=== PATIENT | male | born 1940 | race Caucasian/White ===

== ENCOUNTER 2017-02-24 10:56 | Emergency (ER) | payer MEDICARE, MEDICAID ==
[2016-02-16 10:44] VITALS: BMI 38.8
[~2017-02-24 10:56] MED LIST: ALDACTONE25 MG PO; ASPIRIN325 MG PO; ASPIRIN81 MG PO; BAYER CHEWABLE81 MG PO; COLACE100 MG PO; COREG6.25 MG PO; FOSINOPRIL SODI40 MG PO; GLUCOPHAGE500 MG PO; ISOSORBIDE MONO30 M1 PO; LANTUS INSULIN10 ML SC; MONOPRIL10 MG PO; NITRO-DUR0.2 MG TRANSDERM; PLAVIX75 MG PO; PROTONIX40 MG PO; ZOCOR40 MG PO
[2017-02-24 11:53] LABS: BASOPHILS 0.7 % (0-2); EOSINOPHILS 11.2 % (0-7); HEMATOCRIT 32.1 % (42.0-54.0); HEMOGLOBIN 10.8 g/dL (13.5-17.5); IMMATURE GRANULOCYTES 0.3 % (0-5); LYMPHOCYTES 29.8 % (15-50); MCH 27.9 pg (26.0-34.0); MCHC 33.6 g/dL (31.0-37.0); MCV 82.9 fL (80.0-100.0); MONOCYTES 13.8 % (2-11); NEUTROPHILS 44.2 % (40-80); PLATELET COUNT 186 10x3/uL (130-400); RBC 3.87 10x6/uL (4.20-6.10); RDW 15.3 % (11.5-14.5); WBC 7.1 10x3/uL (4.8-10.8)
[2017-02-24 12:07] LABS: ALBUMIN 3.1 g/dL (3.4-5.0); ALKALINE PHOSPHATASE 55 U/L (46-116); ALT (SGPT) 16 U/L (10-68); BILIRUBIN - TOTAL 0.29 mg/dL (0.2-1.3); CALC OSMOLALITY 260 mosm/kg (275-300); CALCIUM 8.5 mg/dL (8.5-10.1); CARBON DIOXIDE 32.8 mmol/L (21.0-32.0); CHLORIDE - SERUM 94 mmol/L (98-107); CREATININE - SERUM 1.2 mg/dL (0.6-1.3); GLUCOSE 173 mg/dL (74-106); POTASSIUM - SERUM 4.3 mmol/L (3.5-5.1); PROTEIN - SERUM 6.7 g/dL (6.4-8.2); SODIUM 127 mmol/L (136-145); UREA NITROGEN 17 mg/dL (7-18); eGFR NON AFRICAN AMERICAN 63 mL/min (90-120)
[2017-02-24 12:19] LABS: CHOL - HDL RATIO 2.6 ratio (2.3-4.9); CHOLESTEROL, TOTAL 182 mg/dL (0-200); CREATINE KINASE 76 UL (21-232); HDL CHOLESTEROL 69 mg/dL (32-96); LDL CHOLESTEROL 98 mg/dL (0-100); LDL-HDL RATIO 1.4 ratio (1.5-3.5); PRO BNP 427 pg/mL (0-450); TRIGLYCERIDE 76 mg/dL (30-200)
[2017-02-24 12:27] LABS: TROPONIN-I < 0.017 ng/mL (0.000-0.060)
== END 2017-02-24 15:39 | disposition home or self-care (01) ==
LOC: D.ER 10:56
PROVIDERS: Emergency Medicine
DX: R07.9 Chest pain, unspecified (principal); R00.1 Bradycardia, unspecified

== ENCOUNTER 2017-03-04 20:43 | Emergency (ER) | payer MEDICARE, MEDICAID ==
[2016-02-16 10:44] VITALS: BMI 38.8
[2017-03-04 21:37] LABS: BASOPHILS 0.6 % (0-2); HEMATOCRIT 33.4 % (42.0-54.0); HEMOGLOBIN 11.2 g/dL (13.5-17.5); IMMATURE GRANULOCYTES 0.5 % (0-5); LYMPHOCYTES 25.4 % (15-50); MCH 27.9 pg (26.0-34.0); MCHC 33.5 g/dL (31.0-37.0); MCV 83.3 fL (80.0-100.0); MONOCYTES 12.4 % (2-11); NEUTROPHILS 47.1 % (40-80); PLATELET COUNT 172 10x3/uL (130-400); RBC 4.01 10x6/uL (4.20-6.10); RDW 15.3 % (11.5-14.5); WBC 6.3 10x3/uL (4.8-10.8)
[2017-03-04 21:51] LABS: ALBUMIN 3.3 g/dL (3.4-5.0); ALKALINE PHOSPHATASE 62 U/L (46-116); ALT (SGPT) 17 U/L (10-68); CALC OSMOLALITY 262 mosm/kg (275-300); CALCIUM 8.6 mg/dL (8.5-10.1); CARBON DIOXIDE 29.7 mmol/L (21.0-32.0); CHLORIDE - SERUM 95 mmol/L (98-107); CREATININE - SERUM 1.2 mg/dL (0.6-1.3); GLUCOSE 145 mg/dL (74-106); POTASSIUM - SERUM 4.2 mmol/L (3.5-5.1); PROTEIN - SERUM 7.1 g/dL (6.4-8.2); SODIUM 129 mmol/L (136-145); UREA NITROGEN 16 mg/dL (7-18); eGFR NON AFRICAN AMERICAN 63 mL/min (90-120)
[2017-03-04 22:02] LABS: CHOL - HDL RATIO 2.2 ratio (2.3-4.9); CHOLESTEROL, TOTAL 190 mg/dL (0-200); CKMB 1.4 U/L (0.0-3.6); CREATINE KINASE 76 UL (21-232); HDL CHOLESTEROL 86 mg/dL (32-96); LDL CHOLESTEROL 98 mg/dL (0-100); LDL-HDL RATIO 1.1 ratio (1.5-3.5); TRIGLYCERIDE 33 mg/dL (30-200); TROPONIN-I < 0.017 ng/mL (0.000-0.060)
== END 2017-03-04 23:15 | disposition home or self-care (01) ==
LOC: D.ER 20:43
PROVIDERS: Emergency Medicine
DX: R07.9 Chest pain, unspecified (principal); Z86.79 Personal history of other diseases of the circulatory system; E11.9 Type 2 diabetes mellitus without complications; Z79.4 Long term (current) use of insulin; I10 Essential (primary) hypertension; E87.1 Hypo-osmolality and hyponatremia; R06.00 Dyspnea, unspecified; F17.200 Nicotine dependence, unspecified, uncomplicated; R00.1 Bradycardia, unspecified

== ENCOUNTER 2018-04-10 11:41 | Outpatient (CLI) | payer MEDICARE, MEDICAID ==
[~2018-04-10] VITALS: Ht 182.9 cm; Wt 116.2 kg
--- NOTE | ~2018-04-10 | HP ---
PATIENT: RIGOBERTO ROSARIO MEDICAL RECORD: [id number] ACCOUNT: [id number] LOCATION:[facility] : 40 ADMISSION DATE: 04/10/18 PCP: ROBINA CLARKE MD HISTORY AND PHYSICAL EXAMINATION DIAGNOSES: 1. Unstable angina. 2. Coronary disease. 3. Previous PTCA and stent, last being in 2015. 4. Hypertension. 5. Insulin-dependent diabetes. 6. Hyperlipidemia. HISTORY: Mr. Rosario presents with 2 weeks of increasing episodes of chest pain and chest discomfort, compatible with angina. He does have history of coronary disease. Last stent was in 2015. His EKG is with nonspecific ST-T abnormalities. He continues to have episodes of pain. REVIEW OF SYSTEMS: The patient reports easy bruising but reports no swollen glands. The patient reports no fever, no night sweats, no significant weight gain, no significant weight loss. No significant exercise tolerance. The patient reports no dry eyes, no irritation, no vision change. Patient reports no difficulty hearing and no ear pain. Patient reports no frequent nose bleeds or nose and sinus problems. Patient reports on arm pain on exertion. No shortness of breath while lying down. No history of heart murmur. Patient reports no cough, no wheezing or coughing up blood. Patient reports no abdominal pain, no vomiting. Normal appetite. No diarrhea and not vomiting blood. No nausea and no constipation. Patient reports no incontinence. No difficulty urinating. No hematuria. No increased frequency. Patient reports no muscle aches. No weakness, no arthralgias, no back pain. No swelling of the extremities. Patient reports no abnormal mole, no jaundice, no rashes. Reports no loss of consciousness. No weakness and no numbness. No seizures, dizziness, or headaches. The patient reports no depression, no sleep disturbance, feeling safe in a relationship and no alcohol abuse. Patient reports on fatigue. Reports no runny nose or sinus pressure. No itching, no hives, and no frequent sneezing. PHYSICAL EXAMINATION: GENERAL APPEARANCE: Well-nourished, well-developed, appears stated age. Level of distress, comfortable. PSYCHIATRIC: Mental status, alert, normal affect. Orientation, oriented to time, place and person. EYES: Lids and conjunctiva, noninjected. No discharge, no pallor. ENT: Lips, teeth, gums, normal dentition. Oropharynx, no cyanosis, no pallor. NECK: Carotid arteries, bilateral normal upstroke, no bruits, no thrills. JUGULAR VEINS: No jugular venous pressure or distention. CERVICAL LYMPH NODES: Nontender, nonenlarged. THYROID: Not enlarged. Nontender. No nodules. LUNGS: Respiratory effort, unlabored. CHEST: Normal curvature. No thoracic deformity. No chest wall tenderness. Percussion, resonant. Auscultation, clear. No wheezes, no rales, no rhonchi. CARDIOVASCULAR: Precordial exam, nondisplaced. No heaves or pericardial thrills. Rate and rhythm, regular. Heart sounds, normal S1, normal S2. No S3, no gallop, no rub. Systolic murmur, not heard. Diastolic murmur, not heard. EXTREMITIES: No cyanosis, no edema. Peripheral pulses, full and equal in all HISTORY AND PHYSICAL [id number] MARLENE,RIGOBERTO Jackson extremities, except as noted. No bruits appreciated. ABDOMEN: Soft, nondistended. Normal aorta. No bruit. Nontender. No masses. Liver, nontender, no hepatomegaly. Spleen, nontender, no splenomegaly. MUSCULOSKELETAL: No joint tenderness. No joint swelling. No erythema. NEUROLOGICAL: Normal gait, normal strength, normal tone. SKIN: Warm and dry. OVERALL IMPRESSION: Chest pain compatible with angina. Most likely, he has recurrent hemodynamically significant coronary disease. We will proceed with coronary angiography. Further care depends upon findings of the angiography. TRANSINT:[id number] Voice Confirmation ID: [id number] DOCUMENT ID: [id number] BASSEM REAL MD at 0923 CC: [id number] DICTATION DATE: 04/10/18 1254 DEPARTMENT STORE GENERAL MANAGER: 04/10/18 1323 DEP CLI 04/12/[address] [address]
--- NOTE | ~2018-04-10 | DS ---
PATIENT:RIGOBERTO ROSARIO :40 MEDICAL RECORD: [id number] DISCHARGE SUMMARY ADMISSION DATE: 04/10/18 DISCHARGE DATE: 04/12/18 DATE OF SERVICE: 04/12/2018. DIAGNOSES: 1. Angina. 2. Coronary artery disease. 3. Percutaneous transluminal coronary angioplasty stent right coronary artery and left anterior descending this admission. 4. Congestive heart failure, chronic systolic dysfunction. 5. Cardiomyopathy, ischemic. 6. Hypertension. HOSPITAL COURSE: Mr. Rosario presents with anginal and heart failure symptomatology, found to have 2-vessel disease of the RCA and LAD, underwent successful PTCA stent of both territories, was discharged home with the addition of aspirin and Plavix to his medical regimen. He will follow up with [facility] in 1 month. TRANSINT:[id number] Voice Confirmation ID: [id number] DOCUMENT ID: [id number] BASSEM REAL MD at 0924 CC: [id number] DICTATION DATE: 04/12/18 0943 MULE PACKER: 04/12/18 1242 DEP CLI 04/12/[address] [address]
--- NOTE | ~2018-04-10 | OP ---
PATIENT NAME: RIGOBERTO ROSARIO MEDICAL RECORD: [id number] :40 LOCATION:D.CAT ADMISSION DATE: SURGEON: BASSEM REAL MD DATE OF OPERATION: 04/11/2018 PROCEDURES: 1. PTCA stent LAD. 2. Intravascular ultrasound. 3. Selective coronary angiography. INDICATION: Angina and coronary artery disease. PROCEDURE IN DETAIL: After informed consent was obtained and after a detailed description of risks, benefits as well as alternative therapies, the patient elected to proceed with angiogram and angioplasty. The left femoral area was prepped and draped in normal sterile fashion. Left femoral artery was cannulated via modified Seldinger technique with placement of 6-Frisian sheath. All catheters exchanged through this sheath. FINDINGS: The left anterior descending has greater than 80% stenosis throughout the proximal vessel confirmed by intravascular ultrasound. This was addressed with a 3.0 x 26 mm Sharon stent. Result was 0% residual stenosis. Left circumflex does have significant stenosis; however, this vessel is small caliber, especially the obtuse marginal. We deferred this to medical management. OVERALL IMPRESSION: Successful percutaneous transluminal coronary angioplasty stent of the left anterior descending going from greater than 80% initial stenosis to 0% residual. TRANSINT:[id number] Voice Confirmation ID: [id number] DOCUMENT ID: [id number] BASSEM REAL MD at 0923 CC: [id number] DICTATION DATE: 04/11/18 0935 AGRICULTURAL EXTENSION EDUCATOR: 04/11/18 1206 DEP CLI 04/12/18 [place] [id number]
--- NOTE | ~2018-04-10 | OP ---
PATIENT NAME: RIGOBERTO ROSARIO MEDICAL RECORD: [id number] :40 LOCATION:D.CAT ADMISSION DATE: SURGEON: BASSEM REAL MD DATE OF OPERATION: 04/10/2018 PROCEDURES: 1. PTCA stent RCA. 2. Left heart catheterization. 3. Selective coronary angiography. 4. Left ventriculogram. INDICATION: Angina and coronary artery disease. PROCEDURE PERFORMED: After informed consent was obtained and after a detailed description of risks, benefits as well as alternative therapies, the patient elected to proceed with angiogram and angioplasty. The right femoral area was prepped and draped in normal sterile fashion. The right femoral artery was cannulated via modified Seldinger technique with placement of 6-Indonesian sheath. All catheters exchanged through this sheath. FINDINGS: Left ventriculogram was performed in a standard 30-degree WRIGHT view, reveals global hypokinesis throughout all segments. Overall ejection fraction estimated 20%. SELECTIVE CORONARY ANGIOGRAPHY: 1. Left main is with no significant angiographic disease. 2. Left anterior descending has previously placed stents. There is 70% to 80% stenosis in the mid vessel. 3. Left circumflex has 70% to 80% stenosis in the mid vessel. 4. The right coronary artery has previously placed stents, these are widely patent; however, after the stents, there is 95% stenosis. PTCA STENT OF THE RCA: The stent used was a 2.25 x 18 mm [place]. Result was 0% residual stenosis. OVERALL IMPRESSION: Successful percutaneous transluminal coronary angioplasty stent of the right coronary artery going from 95% initial stenosis to 0% residual. PLAN: For PTCA stent of the LAD and circumflex in the near future. TRANSINT:[id number] Voice Confirmation ID: [id number] DOCUMENT ID: [id number] BASSEM REAL MD at 0923 CC: [id number] DICTATION DATE: 04/10/18 1549 POWERHOUSE HELPER: 04/10/18 1626 DEP CLI 04/12/[address] [address]
--- NOTE | ~2018-04-10 | HEMODYNAMI ---
PATIENT:RIGOBERTO ROSARIO MEDICAL RECORD: [id number] : 40 [address] [id number] ADMISSION DATE: 04/10/18 Generatedon:04/11/20189:36 Patient name: RIGOBERTO ROSARIO Patient #: [id number] SSN: : 1940 Date of study: 04/11/2018 Page: Of Hemodynamic Procedure Report Patient Data Patient Demographics Procedure consent was obtained First Name: RIGOBERTO Gender: Male Last Name: MARLENE : 1940 [facility] Initial: J Age: 77 year(s) Patient #: [id number] Race: Additional ID: [id number] Contact details Address: [address] [place] [address] 8 State: [place] City: [place] Zip code: [address] Past Medical History Allergies: No known allergies Admission Admission Data Admission Date: 04/10/2018 Admission Time: 11:41 Room #: [facility] Lab Results Lab Result Date: 04/10/2018 Lab Result Time: 0:00 Biochemistry Name Units Result Min Max BUN mg/dl 18 --(---*)-- 7 18 Creatinine mg/dl 1.2 --(---*)-- 0.6 1.3 CBC Name Units Result Min Max Hemoglobin g/dl 10.9 *-(----)-- 13.5 17.5 Platelets 10^3/l 182 --(*---)-- 130 400 Procedure Procedure Types Cath Procedure Diagnostic Procedure FFR/IVUS Intra-Coronary IVUS Initial Sedation Charges Moderate Sedation up to 15 minutes PCI Procedure Coronary Stent Coronary Stent Initial Procedure Description Procedure Date Procedure Date: 04/11/2018 Procedure Start Time: 9:20 Procedure End Time: 9:33 Procedure Staff Name Function Paul Hamilton MD Performing Physician Veda Reed RT Scrub Go Lora RN Nurse Dinah Gaona RN Director E Learning Johnna Pulliam RT Monitor Procedure Data Cath Procedure Fluoroscopy Diagnostic fluoroscopy Total fluoroscopy Time: 2.3 time: 2.3 min min Diagnostic fluoroscopy Total fluoroscopy dose: 989 dose: 989 mGy mGy Contrast Material Contrast Material Type Amount (ml) Isovue 300 53 Entry Location Entry Primary Successful Side Size Upsize Upsize Entry Closure Succes sful Closure Location (Fr) 1 (Fr) 2 (Fr) Remarks Device Remarks Femoral Left 6 Fr Exoseal artery Short Estimated blood loss: 10 ml Procedure Complications No complications Procedure Medications Medication Administration Route Dosage Oxygen etCO2 Nasal cannula 2 l/min Heparin Flush Bag added to field 2 bags (1000units/500ml NS) 0.9% NaCl I.V. 100 ml/hr Plavix P.O. 75 mg Fentanyl I.V. 50 mcg Versed I.V. 1 mg Fentanyl I.V. 50 mcg Versed I.V. 1 mg Heparin Bolus I.V. 4000 units Fentanyl I.V. 50 mcg Hemodynamics Rest HGB: 10.9 (g/dl) Heart Rate: 81 (bpm) Snapshots Pre Cath Intra NCS Post Cath Vital Signs Time Heart Resp SPO2 etCO2 NIBP (mmHg) Rhythm Pain Sedation Rate (ipm) (%) (mmHg) Status Level (bpm) 9:10:40 90 17 97 30.9 190/90(163) NSR 0 (11) 10(A) , No pain 9:15:18 75 17 98 34.7 208/78(149) NSR 0 (11) 9(A) , No pain 9:19:55 66 17 97 0 186/72(132) NSR 0 (11) 9(A) , No pain 9:24:29 62 16 97 24.9 179/66(126) NSR 0 (11) 9(A) , No pain 9:28:58 61 17 98 37.7 152/64(122) NSR 0 (11) 9(A) , No pain 9:31:33 60 17 98 0 159/68(122) NSR 0 (11) 9(A) , No pain Medications Time Medication Route Dose Verified Delivered Reason Notes Effectiveness by by 9:10:12 Oxygen etCO2 2 Paul Stiles Per physician Nasal l/min Alfonso Lora RN cannula 9:10:18 Heparin Flush added 2 Paul Stiles used for Bag to bags Alfonso Lora slubber hand (1000units/500ml field NS) 9:10:27 0.9% NaCl I.V. 100 Paul Stiles Per physician ml/hr Alfonso Lora RN 9:10:38 Plavix P.O. 75 mg Paul Stiles for Alfonso Lora RN antiplatelet therapy 9:13:05 Fentanyl I.V. 50 Paul Stiles for sedation mcg Alfonso Lora RN 9:13:11 Versed I.V. 1 mg Paul Stiles for sedation Alfonso Lora RN 9:20:02 Fentanyl I.V. 50 Paul Stiles for sedation mcg Alfonso Lora RN 9:20:06 Versed I.V. 1 mg Paul Stiles for sedation Alfonso Lora RN 9:23:15 Heparin Bolus I.V. 4000 Paul Stiles for units Alfonso Lora RN anticoagulation 9:24:43 Fentanyl I.V. 50 Paul Stiles for sedation mcg Alfonso Lora RN Procedure Log Time Note 8:40:47 Dinah Gaona RN sent for patient. Start room use. 8:44:03 Time tracking: Regular hours (M-F 7:00 - 5:00) 8:44:07 Plan of Care:Hemodynamics will remain stable., Cardiac rhythm will remain stable., Comfort level will be maintained., Respiratory function will remain adequate., Patient/ family verbilizes understanding of procedure., Procedure tolerated without complication., Recovers from procedure without complications.. 8:44:09 Signed procedure consent form obtained from patient. 8:44:17 H&P Date Dictated: 04/10/2018 Within 30 days and on chart.. 8:57:31 Patient received from Pre/Post Procedure Room to CCL 2 Alert and oriented. Tansferred to table in Supine position. 8:57:32 Warm blankets applied, and jennifer hugger turned on for patient comfort. 8:57:33 Correct patient and procedure confirmed by team. 8:57:34 ECG and BP/O2 sat monitors applied to patient. 9:09:22 Vital chart was started 9:09:39 Baseline sample Acquired. 9:09:43 Rhythm: sinus rhythm 9:09:45 Full Disclosure recording started 9:09:49 Family in patients room. 9:09:51 Patient NPO since Midnight. 9:10:12 Oxygen 2 l/min etCO2 Nasal cannula was administered by Go Lora RN; Per physician; 9:10:18 Heparin Flush Bag (1000units/500ml NS) 2 bags added to field was administered by Go Lora RN; used for procedure; 9:10:27 0.9% NaCl 100 ml/hr I.V. was administered by Go Lora RN; Per physician; 9:10:38 Plavix 75 mg P.O. was administered by Go Lora RN; for antiplatelet therapy; 9:10:49 Is patient on blood thinner?Yes 9:10:55 Is the patient allergic to Iodine/contrast media? No. 9:11:04 Patient diabetic? Yes. 9:11:46 If diabetic: On Metformin? No 9:11:54 Snore? Yes 9:12:02 Sleep apnea? No 9:12:05 Deviated septum? No 9:12:06 Sticks out tongue? Yes 9:12:22 Dentures? No ? 9:12:31 IV patent on arrival in left forearm with 0.9% NaCl at O. 9:12:37 Lab results completed and on chart. 9:12:40 Left groin area was prepped with chlora-prep and draped in sterile fashion 9:12:41 Alarms reviewed by R. N. 9:12:42 Sharps counted by scrub and verified by R.N. 9:12:43 Physician paged 9:12:44 Physician arrived 9:12:45 --------ALL STOP TIME OUT------ 9:12:46 Final Timeout: patient, procedure, and site verified with staff and physician. All members of the team are in agreement. 9:12:50 Left groin site verified by team. 9:13:05 Fentanyl 50 mcg I.V. was administered by Go Lora RN; for sedation; 9:13:05 Physical assessment completed. ASA score P 2 - A patient with mild systemic disease as per Paul Hamilton MD. 9:13:10 Sedation plan: IV Moderate Sedation Medication:Versed, Fentanyl 9:13:11 Versed 1 mg I.V. was administered by Go Lora RN; for sedation; 9:15:26 Use device set Femoral Dx 9:15:27 ACIST Syringe (33663) opened to sterile field. 9:15:28 Bag Decanter (2002S) opened to sterile field. 9:15:29 Medline Cath Pack ([id number]) opened to sterile field. 9:15:31 DIAGNOSTIC WIRE .035 260cm J wire (727114) opened to sterile field. 9:15:32 ACIST Hand Control (43120) opened to sterile field. 9:15:33 ACIST Manifold (77469) opened to sterile field. 9:15:38 Tegaderm 4 x 4 (1626W) opened to sterile field. 9:15:57 SHEATH Prelude 6Fr 0.035 (ODQ-7A-04-035) opened to sterile field. 9:17:36 GUIDE 6FR XBLAD 3.5 catheter ([id number]) opened to sterile field. 9:17:57 CHOICE PT Extra Support 182cm wire ([id number]) opened to sterile field. 9:17:59 INFLATOR Merit BasixCompak (HZ4132) opened to sterile field. 9:19:51 Procedure started. 9:20:02 Fentanyl 50 mcg I.V. was administered by Go Lora RN; for sedation; 9:20:06 Versed 1 mg I.V. was administered by Go Lora RN; for sedation; 9:20:54 Local anesthetic to left femerol artery with Lidocaine 2% by Paul Hamilton MD.INITIAL ACCESS ONLY 9:21:53 A 6 Fr Short sheath was inserted into the Left Femoral artery 9:22:07 6 Fr XBLAD3.5 guide catheter was inserted over the wire 9:22:46 Choice ptex wire advanced. 9:23:14 [place] Kenaitze Eagleye IVUS Catheter (39095J) opened to sterile field. 9:23:15 Heparin Bolus 4000 units I.V. was administered by Go Lora RN; for anticoagulation; 9:23:59 Wire advanced across lesion. 9:24:02 IVUS catheter advanced over wire. 9:24:43 Fentanyl 50 mcg I.V. was administered by Go Lora RN; for sedation; 9:25:34 IVUS catheter removed over wire. 9:27:04 Place stent Inflation Number: 1 A JESUS RX 3.0 x 26 stent ([id number]) was prepped and advanced across the Mid LAD. The stent was deployed at 19 RONALD for 0:14 (min:sec). 9:28:31 Wire removed. 9:28:34 Guide catheter removed. 9:28:47 EXOSEAL 6Fr (EX600) opened to sterile field. 9:31:41 Sheath removed intact; hemostasis achieved with Exoseal to the Left Femoral artery. 9:31:51 Procedure ended.(Physican Out) 9:31:55 Fluoroscopy time 02.30 minutes. 9:32:02 Flurop Dose total: 989 9:32:02 Fluoroscopy dose: 989 mGy 9:32:07 Contrast amount:Isovue 300 53ml. 9:32:09 Sharps counted by scrub and verified by R.N. 9:32:11 Insertion/operative site no bleeding no hematoma. 9:32:14 Post Procedure Pulses reassessed and unchanged 9:32:17 Post-procedure physical assessment completed. ASA score P 2 - A patient with mild systemic disease as per Paul Hamilton MD. 9:32:22 Post procedure rhythm: unchanged. 9:32:33 Estimated blood loss: 10 ml 9:32:35 Post procedure instruction explained to patient.Patient verbalizes understanding. 9:32:58 Procedure type changed to Cath procedure, Diagnostic procedure, FFR/IVUS, Intra-Coronary IVUS Initial, Sedation Charges, Moderate Sedation up to 15 minutes, PCI procedure, Coronary Stent, Coronary Stent Initial 9:33:00 Procedure and supply charges have been captured, reviewed, submitted and are correct. 9:33:24 Procedure Complication : No complications 9:33:27 Vital chart was stopped 9:33:28 See physician's report for complete and final results. 9:33:34 Report given to [facility]. 9:33:38 Patient transfered to [facility] with Stretcher. 9:33:40 Procedure ended. 9:33:40 Full Disclosure recording stopped 9:33:43 End room use (Document Last) 9:34:02 ACC-PCI Only Patient was given prescriptions, or instructed by Paul Hamilton MD to start/continue the following medications upon discharge: Plavix Intervention Summary Intervention Notes Time ActionType Lesion and Equipment Used Action# Pressure Duration Attributes 9:27:04 Place stent Mid LAD JESUS RX 3.0 x 1 19 00:14 26 stent ([id number]) Device Usage Item Name Manufacture Quantity Catalog Number Hospital Part Current Minimal Lot# / Charge Number Stock Stock Serial# Code ACIST Syringe Acist 1 15170 203160 699343 161531 20 (24974) [employer] Bag Decanter Microtek 1 2001S 093824 39876 655231 5 (2001S) Medical Inc. Medline Cath Cardinal 1 [id number] 261783 46473 217777 5 Pack Health ([id number]) DIAGNOSTIC WIRE [place] 1 796933 051585 886635 433262 30 .035 260cm J wire (135819) ACIST Hand Acist 1 24304 484880 893297 027347 5 Control (21834) [employer] Inc ACIST Manifold Acist 1 50749 717407 299976 183830 5 (60923) [employer] Inc Tegaderm 4 x 4 3M 1 1626W 308584 789233 613505 5 (1626W) SHEATH Prelude Merit 1 [id number]-[id number] 971005 4642440 014218 5 6Fr 0.035 Medical (UFB-4B-93-035) GUIDE 6FR XBLAD Cardinal 1 [id number] 153375 931936 215087 10 3.5 catheter Health ([id number]) CHOICE PT Extra [place] 1 [id number] 823260 658485 083505 5 Support 182cm Scientific wire ([id number]) INFLATOR Merit Merit 1 [id number] 097070 390919 103727 15 [employer]usion (previously [employer])[facility] (FS1530) [place] 1 [id number] 510380 500346 916273 8 Kenaitze Eagleye IVUS Catheter (42843X) JESUS RX 3.0 x Medtronic 1 [id number] 571904 9927858 549417 5 [id number] 26 stent ([id number]) EXOSEAL 6Fr Cardinal 1 EX600 213267 783842 902617 10 (EX600) Health Signature Audit [place] Stage Time Signature Unsigned Intra-Procedure 04/11/2018 Johnna Pulliam 9:35:58 AM RT(R) Signatures Monitor : Johnna Pulliam Signature : RT Date : Time : [facility] [address] [place] [address]
--- NOTE | ~2018-04-10 | HEMODYNAMI ---
PATIENT:RIGOBERTO ROSARIO MEDICAL RECORD: [id number] : 40 LOCATION:[facility] ADMISSION DATE: 04/10/18 Generatedon:04/10/201815:46 Patient name: RIGOBERTO ROSARIO Patient #: [id number] SSN: : 1940 Date of study: 04/10/2018 Page: Of Hemodynamic Procedure Report Patient Data Patient Demographics Procedure consent was obtained First Name: RIGOBERTO Gender: Male Last Name: MARLENE : 1940 [facility] Initial: J Age: 77 year(s) Patient #: [id number] Race: Additional ID: [id number] Contact details Address: [address] [place] [address] State: [place] City: [place] Zip code: [address] Past Medical History Allergies: No known allergies Admission Admission Data Admission Date: 04/10/2018 Admission Time: 11:41 Lab Results Lab Result Date: 04/10/2018 Lab Result Time: 0:00 Biochemistry Name Units Result Min Max BUN mg/dl 18 --(---*)-- 7 18 Creatinine mg/dl 1.2 --(---*)-- 0.6 1.3 CBC Name Units Result Min Max Hemoglobin g/dl 10.9 *-(----)-- 13.5 17.5 Platelets 10^3/l 182 --(*---)-- 130 400 Procedure Procedure Types Cath Procedure Diagnostic Procedure [facility] w/Coronaries Sedation Charges Moderate Sedation up to 15 minutes PCI Procedure Coronary Stent Coronary Stent Initial Procedure Description Procedure Date Procedure Date: 04/10/2018 Procedure Start Time: 15:22 Procedure End Time: 15:44 Procedure Staff Name Function Paul Hamilton MD Performing Physician Patricia Catherine RT Monitor Arsenio Craig RN Nurse Amilcar Taylor RT Scrub Procedure Data Cath Procedure Fluoroscopy Diagnostic fluoroscopy Total fluoroscopy Time: 5.4 time: 5.4 min min Diagnostic fluoroscopy Total fluoroscopy dose: dose: 1295 mGy 1295 mGy Contrast Material Contrast Material Type Amount (ml) Isovue 300 120 Entry Location Entry Primary Successful Side Size Upsize Upsize Entry Closure Succes sful Closure Location (Fr) 1 (Fr) 2 (Fr) Remarks Device Remarks Femoral Right 5 Fr 6 Fr Exoseal artery Short Estimated blood loss: 5 ml Diagnostic catheters Device Type Used For End Catheter Placement MULTIPACK Pigtail 5 Fr LV Angiography catheter MULTIPACK JL 4.0 5Fr Left Coronary catheter Angiography MULTIPACK 3DRC 5Fr Right Coronary catheter Angiography Procedure Complications No complications Procedure Medications Medication Administration Route Dosage 0.9% NaCl I.V. 100 ml/hr Oxygen etCO2 Nasal cannula 2 l/min Heparin Flush Bag added to field 2 bags (1000units/500ml NS) Lidocaine 2% added to field 20 Versed I.V. 1 mg Fentanyl I.V. 50 mcg Versed I.V. 1 mg Heparin Bolus I.V. 4000 units Dobutamine I.V. drip 5 mcg/kg/min (500mg/250ml D5W) Integrilin (Bolus I.V. 10.2 ml 2mg/ml) Integrilin (Bolus wasted 9.8 ml 2mg/ml) Nitroglycerin IC/IA I.C. 250 mcg Nitroglycerin IC/IA I.C. 250 mcg Hemodynamics Rest HGB: 10.9 (g/dl) Heart Rate: 55 (bpm) Pressure Samples Time Site Value (mmHg) Purpose Heart Use Rate(bpm) 15:24 LV 164/-1,32 Snapshot 50 Snapshots Pre Cath Intra NCS Post Cath Vital Signs Time Heart Resp SPO2 etCO2 NIBP (mmHg) Rhythm Pain Sedation Rate (ipm) (%) (mmHg) Status Level (bpm) 15:14:43 55 16 95 21 168/82(119) NSR 0 (11) 10(A) , No pain 15:19:09 53 19 100 0.7 159/65(127) NSR 0 (11) 10(A) , No pain 15:23:31 51 18 100 0 148/58(115) NSR 0 (11) 10(A) , No pain 15:28:36 54 26 100 27.1 148/61(110) NSR 0 (11) 10(A) , No pain 15:33:54 52 18 99 36.8 138/55(107) NSR 0 (11) 10(A) , No pain 15:38:12 50 17 100 0 156/59(118) NSR 0 (11) 10(A) , No pain 15:42:36 56 21 98 23.3 152/66(116) NSR 0 (11) 10(A) , No pain Medications Time Medication Route Dose Verified Delivered Reason Notes Effectiveness by by 15:16:38 0.9% NaCl I.V. 100 ml/hr Arsenio Arsenio Per physician Rafa Craig RN RN 15:16:46 Oxygen etCO2 2 l/min Rasenio Arsenio for arrhythmia Nasal Lorigan Rafa cannula RN RN 15:16:59 Heparin Flush added 2 bags Arsenio Arsenio used for Bag to Rafa Craig procedure (1000units/500ml field RN RN NS) 15:17:10 Lidocaine 2% added 20ml vial Arsenio Arsenio for local to Lorigan Rosaigan anesthetic field RN RN 15:21:39 Versed I.V. 1 mg Arsenio Arsenio for sedation Rafa Craig RN RN 15:21:47 Fentanyl I.V. 50 mcg Arsenio Arsenio for sedation Rafa Craig RN RN 15:25:24 Versed I.V. 1 mg Arsenio Arsenio for sedation Rafa Craig RN RN 15:30:42 Heparin Bolus I.V. 4000 units Arsenio Arsenio for verified Lorigan Rafa anticoagulation with dr RN GARIMA hamilton 15:31:10 Dobutamine I.V. 5 Arsenio Arsenio Per physician (500mg/250ml drip mcg/kg/min Rafa Craig D5W) RN RN 15:40:52 Integrilin I.V. 10.2 ml Arsenio Arsenio for (Bolus 2mg/ml) Rafa Craig antiplatelet RN RN therapy 15:41:10 Integrilin wasted 9.8 ml Arsenio Arsenio to sharp's (Bolus 2mg/ml) Rafa Craig RN RN 15:41:31 Nitroglycerin I.C. 250 mcg Arsenioosvaldo Hansenrey for IC/IA Rafa Hamilton MD vasodilation RN 15:41:43 Nitroglycerin I.C. 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 Start room use. 14:45:31 Time tracking: Regular hours (M-F 7:00 - 5:00) 14:45:35 Plan of Care:Hemodynamics will remain stable., Cardiac rhythm will remain stable., Comfort level will be maintained., Respiratory function will remain adequate., Patient/ family verbilizes understanding of procedure., Procedure tolerated without complication., Recovers from procedure without complications.. 15:07:24 Patient received from ED to CCL 2 Alert and oriented. Tansferred to table in Supine position. 15:07:28 Warm blankets applied, and jennifer hugger turned on for patient comfort. 15:07:29 Correct patient and procedure confirmed by team. 15:07:33 Signed procedure consent form obtained from patient. 15:07:36 ECG and BP/O2 sat monitors applied to patient. 15:08:00 Lab results completed and on chart. 15:09:22 Lab Result : BUN 18 mg/dl 15::22 Lab Result : Creatinine 1.2 mg/dl 15::22 Lab Result : Hemoglobin 10.9 g/dl 15:09:22 Lab Result : Platelets 182 10^3/l 15:10:03 Family in waiting room. 15:10:12 Patient NPO since Breakfast. 15:10:30 Is the patient allergic to Iodine/contrast media? No. 15:12:32 Vital chart was started 15:12:54 Baseline sample Acquired. 15:13:07 Rhythm: sinus rhythm 15:13:42 H&P Date Dictated: 04/10/2018 ER History on chart.. 15:14:04 Pre-procedure instructions explained to patient. 15:14:05 Pre-op teaching completed and patient verbalized understanding. 15:14:15 Is patient on blood thinner?Yes 15:14:33 ACC The patient was administered the following blood thiners within the last 24 hours: ACCAspirin, ACCPlavix 15:14:48 Patient diabetic? Yes. 15:14:50 If diabetic: On Metformin? No 15:15:10 Snore? Yes 15:15:13 Sleep apnea? No 15:15:15 Deviated septum? No 15:15:17 Opens mouth fully? Yes 15:15:18 Sticks out tongue? Yes 15:15:23 Airway obstruction? No ? 15:15:28 Airway obstruction? No ? 15:15:39 Dentures? Yes out 15:16:04 Pre procedure: right dorsailis pedis pulse 1+ Palpable, but thready & weak; easily obliterated 15:16:07 Pre procedure: left dorsailis pedis pulse 1+ Palpable, but thready & weak; easily obliterated 15:16:10 Patient pain scale 0/10 ?. 15:16:16 IV patent on arrival in right hand with 0.9% NaCl at O. 15:16:20 Lab results completed and on chart. 15:16:25 Right groin area was prepped with chlora-prep and draped in sterile fashion 15:16:26 Alarms reviewed by R. N. 15:16:26 Sharps counted by scrub and verified by R.N. 15:16:27 Physician arrived 15:16:27 --------ALL STOP TIME OUT------ 15:16:28 Final Timeout: patient, procedure, and site verified with staff and physician. All members of the team are in agreement. 15:16:38 0.9% NaCl 100 ml/hr I.V. was administered by Arsenio Craig RN; Per physician; 15:16:42 Right groin site verified by team. 15:16:46 Oxygen 2 l/min etCO2 Nasal cannula was administered by Arsenio Craig RN; for arrhythmia; 15:16:46 Physical assessment completed. ASA score P 2 - A patient with mild systemic disease as per Paul Hamilton MD. 15:16:49 Sedation plan: IV Moderate Sedation Medication:Versed, Fentanyl 15:16:53 Use device set Femoral Dx 15:16:54 ACIST Syringe (27270) opened to sterile field. 15:16:55 Bag Decanter (2002) opened to sterile field. 15:16:55 Medline Cath Pack ([id number]) opened to sterile field. 15:16:56 DIAGNOSTIC WIRE .035 260cm J wire (991618) opened to sterile field. 15:16:56 ACIST Hand Control (41629) opened to sterile field. 15:16:57 ACIST Manifold (06409) opened to sterile field. 15:16:57 DIAGNOSTIC Multipack 5Fr catheter set (WO5538) opened to sterile field. 15:16:58 Tegaderm 4 x 4 (1626W) opened to sterile field. 15:16:59 Heparin Flush Bag (1000units/500ml NS) 2 bags added to field was administered by Arsenio Craig RN; used for procedure; 15::59 SHEATH Prelude 5Fr 0.035 (SWH-8S-94-035) opened to sterile field. 15:17:10 Lidocaine 2% 20ml vial added to field was administered by Arsenio Craig RN; for local anesthetic; 15::39 Versed 1 mg I.V. was administered by Arsenio Craig RN; for sedation; :: Procedure started. 15::44 Full Disclosure recording started 15::47 Fentanyl 50 mcg I.V. was administered by Arsenio Craig RN; for sedation; 15::59 Zero performed for pressure channel P1 15::50 Local anesthetic to right femoral artery with Lidocaine 2% by Paul Hamilton MD.INITIAL ACCESS ONLY 15:23:04 A 5 Fr sheath was inserted into the Right Femoral artery 15::39 A MULTIPACK Pigtail 5 Fr catheter was advanced over the wire and used for LV Angiography. 15:24:43 LV hemodynamics recorded. 15:24:49 LV gram done using WRIGHT 15::51 Injector settings: Ml/sec: 5, Volume: 15, 15:24:57 EF : 25 % 15:25:04 Catheter removed. 15:25:12 A MULTIPACK JL 4.0 5Fr catheter was advanced over the wire and used for Left Coronary Angiography. 15:25:24 Versed 1 mg I.V. was administered by Arsenio Craig RN; for sedation; 15::44 LCA angiography performed. 15::47 Injector settings: Ml/sec: 3, Volume: 6, 15:26:17 INFLATOR Merit BasixCompak (OJ3326) opened to sterile field. 15:26:17 SHEATH Prelude 6Fr 0.035 (TFE-3V-53-035) opened to sterile field. 15:26:18 CHOICE PT Extra Support 182cm wire ([id number]) opened to sterile field. 15:26:29 Catheter removed. 15:26:37 A MULTIPACK 3DRC 5Fr catheter was advanced over the wire and used for Right Coronary Angiography. 15:27:11 RCA angiography performed. 15:27:13 Injector settings: Ml/sec: 3, Volume: 6, 15:28:25 Catheter removed. 15:28:33 Proceeding to intervention. 15:28:40 Sheath upsized to a 6 Fr Short. 15:29:43 CHOICE PT Extra Support 182cm wire ([id number]) opened to sterile field. 15:30:24 GUIDE 6FR HS II SH catheter ([id number]) opened to sterile field. 15:30:37 6 Fr hs 2 sh guide catheter was inserted over the wire 15:30:42 Heparin Bolus 4000 units I.V. was administered by Arsenio Craig RN; for anticoagulation; verified with dr hamilton 15:31:10 Dobutamine (500mg/250ml D5W) 5 mcg/kg/min I.V. drip was administered by Arsenio Craig RN; Per physician; 15:34:05 CHOICE PT Extra Support J 300cm guide wire ([id number]) opened to sterile field. 15:34:30 300 choice pt wire advanced. 15:34:31 Wire advanced across lesion. 15:36:19 Inflate balloon Inflation number: 1 A EMERGE OTW 2.0 x 15 balloon ([id number]) was prepped and advanced across the Dist RCA, then inflated to 21 RONALD for 0:10 (min:sec). 15:37:18 Balloon removed over the wire. 15:40:41 Place stent Inflation Number: 2 A JESUS RX 2.25 x 18 stent ([id number]) was prepped and advanced across the Dist RCA. The stent was deployed at 21 RONALD for 0:10 (min:sec). 15:40:52 Integrilin (Bolus 2mg/ml) 10.2 ml I.V. was administered by Arsenio Craig RN; for antiplatelet therapy; 15:41:10 Integrilin (Bolus 2mg/ml) 9.8 ml wasted was administered by Arsenio Craig RN; to sharp's; 15:41:31 Nitroglycerin IC/IA 250 mcg I.C. was administered by Paul Hamilton MD; for vasodilation; 15:41:41 Stent catheter was removed intact over wire. 15:41:41 Wire removed. 15:41:42 Guide catheter removed. 15:41:43 Nitroglycerin IC/IA 250 mcg I.C. was administered by Paul Hamilton MD; for vasodilation; 15:41:49 EXOSEAL 6Fr (EX600) opened to sterile field. 15:42:26 Sheath removed intact; hemostasis achieved with Exoseal to the Right Femoral artery. 15:42:28 Procedure ended.(Physican Out) 15:43:07 Fluoroscopy time 05.40 minutes. 15:43:11 Fluoroscopy dose: 1295 mGy 15:43:11 Flurop Dose total: 1295 15:43:15 Contrast amount:Isovue 300 120ml. 15:43:17 Sharps counted by scrub and verified by R.N. 15:43:28 Insertion/operative site no bleeding no hematoma. 15:43:31 Post-op/insertion site Right Femoral artery dressed using a 4 x 4 and Tegaderm. 15:43:35 Post right femoral artery:stable 15:43:37 Post Procedure Pulses reassessed and unchanged 15:43:40 Post procedure rhythm: unchanged. 15:43:49 Estimated blood loss: 5 ml 15:43:50 Post procedure instruction explained to patient.Patient verbalizes understanding. 15:43:51 Patient needs reinforcement of post procedure teaching. 15:44:05 Procedure type changed to Cath procedure, Diagnostic procedure, LHC, LHC w/Coronaries, Sedation Charges, Moderate Sedation up to 15 minutes, PCI procedure, Coronary Stent, Coronary Stent Initial 15:44:07 Procedure and supply charges have been captured, reviewed, submitted and are correct. 15:44:24 Procedure Complication : No complications 15:44:26 Vital chart was stopped 15:44:27 See physician's report for complete and final results. 15:44:31 Report given to PCU. 15:44:34 Patient transfered to PCU with Stretcher. 15:44:36 Procedure ended. 15:44:36 Full Disclosure recording stopped 15:44:44 ACC-PCI Only Patient was given prescriptions, or instructed by Paul Hamilton MD to start/continue the following medications upon discharge: Plavix 15:44:45 End room use (Document Last) Intervention Summary Intervention Notes Time ActionType Lesion and Equipment Used Action# Pressure Duration Attributes 15:36:19 Inflate Dist RCA EMERGE OTW 2.0 1 21 00:10 balloon x 15 balloon ([id number]) 15:40:41 Place stent Dist RCA JESUS RX 2.25 x 2 21 00:10 18 stent ([id number]) Device Usage Item Name Manufacture Quantity Catalog Number Hospital Part Current Minimal Lot# / Charge Number Stock Stock Serial# Code ACIST Syringe Acist 1 59776 438145 293757 948884 20 (73857) [employer] Bag Decanter Microtek 1 114496 69645 965429 5 () Medical Inc. Medline Cath Cardinal 1 [id number] 541850 45416 659956 5 Pack Health ([id number]) DIAGNOSTIC WIRE [place] 1 931932 927106 161636 250341 30 .035 260cm J wire (744420) ACIST Hand Acist 1 26691 848441 280281 164633 5 Control (45622) [employer] Inc ACIST Manifold Acist 1 44508 926299 766869 656096 5 (62870) [employer] Inc DIAGNOSTIC Cardinal 1 [id number] 466194 40314 391370 30 Multipack 5Fr Health catheter set ([id number]) Tegaderm 4 x 4 3M 1 1626W 000022 662883 480297 5 (1626W) SHEATH Prelude Merit 1 AJA-3W-48-035 036535 482308 701635 5 5Fr 0.035 Medical (NKH-4L-33-035) MULTIPACK Cardinal 1 890894 5 Pigtail 5 Fr Health catheter MULTIPACK JL Cardinal 1 856391 5 4.0 5Fr Health catheter INFLATOR Merit Merit 1 NW3638 541649 345808 168267 15 [facility] ([id number]) SHEATH Prelude Merit 1 SBP-3Z-07-35 092747 3016420 141886 5 6Fr 0.035 Medical (EUJ-5P-96-035) CHOICE PT Extra [place] 2 [id number] 184141 822399 007000 5 Support 182cm Scientific wire ([id number]) MULTIPACK 3DRC Cardinal 1 650105 5 5Fr catheter Health GUIDE 6FR HS II Medtronic 1 [id number] 691808 28485 004872 1 SH catheter ([id number]) CHOICE PT Extra [place] 1 [id number] 911035 014312 147891 5 Support J 300cm Scientific guide wire ([id number]) EMERGE OTW 2.0 [place] 1 [id number] 748500 776021 481872 5 [id number] x 15 balloon Scientific ([id number]) JESUS RX 2.25 x Medtronic 1 [id number] 813349 2481190 578102 5 [id number] 18 stent ([id number]) EXOSEAL 6Fr Cardinal 1 EX600 726871 577877 396213 10 (EX600) Health Signature Audit [place] Stage Time Signature Unsigned Intra-Procedure 04/10/2018 Patricia Catherine 3:46:41 PM RT(R) Signatures Monitor : Patricia Catherine RT Signature : Date : Time : [place] [address] [place] [address]
[2018-04-10 12:17] LABS: BASOPHILS 0.4 % (0-2); EOSINOPHILS 7.4 % (0-7); HEMATOCRIT 32.8 % (42.0-54.0); HEMOGLOBIN 10.9 g/dL (13.5-17.5); IMMATURE GRANULOCYTES 0.3 % (0-5); LYMPHOCYTES 27.6 % (15-50); MCH 28.7 pg (26.0-34.0); MCHC 33.2 g/dL (31.0-37.0); MCV 86.3 fL (80.0-100.0); MEAN PLATELET VOLUME 9.7 fL (7.4-10.4); MONOCYTES 12.2 % (2-11); NEUTROPHILS 52.1 % (40-80); PLATELET COUNT 182 10x3/uL (130-400); RDW 14.3 % (11.5-14.5); WBC 6.9 10x3/uL (4.8-10.8)
[2018-04-10 12:32] LABS: ALBUMIN 3.3 g/dL (3.4-5.0); ALKALINE PHOSPHATASE 56 U/L (46-116); ALT (SGPT) 15 U/L (10-68); BILIRUBIN - TOTAL 0.69 mg/dL (0.2-1.3); CALC OSMOLALITY 268 mosm/kg (275-300); CALCIUM 8.9 mg/dL (8.5-10.1); CARBON DIOXIDE 31.6 mmol/L (21.0-32.0); CHLORIDE - SERUM 96 mmol/L (98-107); CREATININE - SERUM 1.2 mg/dL (0.6-1.3); GLUCOSE 164 mg/dL (74-106); POTASSIUM - SERUM 4.8 mmol/L (3.5-5.1); PROTEIN - SERUM 7.2 g/dL (6.4-8.2); SODIUM 131 mmol/L (136-145); UREA NITROGEN 18 mg/dL (7-18); eGFR NON AFRICAN AMERICAN 62 mL/min (90-120)
[2018-04-10 12:37] LABS: APPEARANCE CLEAR (CLEAR); BILIRUBIN NEGATIVE (NEGATIVE); COLOR YELLOW (YELLOW); GLUCOSE NEGATIVE (NEGATIVE); KETONE NEGATIVE (NEGATIVE); NITRITE NEGATIVE (NEGATIVE); PROTEIN NEGATIVE (NEGATIVE); UROBILINOGEN NORMAL (NORMAL)
[2018-04-10 12:44] LABS: CKMB 1.5 U/L (0.0-3.6); CREATINE KINASE 85 UL (21-232); MAGNESIUM - SERUM 2.1 mg/dL (1.8-2.4)
[2018-04-10 12:45] LABS: TROPONIN-I < 0.017 ng/mL (0.000-0.060)
[2018-04-10 13:17] LABS: INR 0.98 (0.85-1.17); PROTIME 12.6 SECONDS (11.6-15.0)
[2018-04-10] MEDS ORDERED: ISOSORBIDE MONO30 M1 PO (16:23)
[2018-04-10] MEDS ORDERED: JANUVIA100 MG PO (16:24)
[2018-04-10] MEDS ORDERED: FUROSEMIDE40 MG PO (16:24)
[2018-04-10] MEDS ORDERED: FOSINOPRIL SODI20 MG PO (16:25)
[2018-04-10 16:29] VITALS: BP 123/51; BMI 33.3
[2018-04-10 22:06] VITALS: BP 128/37
[2018-04-11 00:47] VITALS: BP 173/65
[2018-04-11 05:23] VITALS: BP 147/50
[2018-04-11 08:23] VITALS: BP 161/45
[2018-04-11 13:28] VITALS: Ht 182.9 cm; Wt 116.2 kg
[2018-04-11 15:54] VITALS: BP 122/51
[2018-04-11 22:50] VITALS: BP 189/66
[2018-04-12 01:58] VITALS: BP 137/47
[2018-04-12 06:15] VITALS: BP 141/70
[2018-04-12 09:39] VITALS: BP 113/50
[2018-04-12] MEDS ORDERED: ASPIRIN81 MG PO (10:32)
== END 2018-04-12 11:52 | disposition home or self-care (01) ==
LOC: D.ER 11:41 → D.M2 11:41 → D.CATH 11:41 → EDSTATUS 13:14 → D.M2 15:55 → D.CATH 04-12 11:52
PROVIDERS: Family Medicine
DX: I25.110 Atherosclerotic heart disease of native coronary artery with unstable angina pectoris (principal); I11.0 Hypertensive heart disease with heart failure; I50.22 Chronic systolic (congestive) heart failure; I25.5 Ischemic cardiomyopathy; Z95.5 Presence of coronary angioplasty implant and graft; E11.9 Type 2 diabetes mellitus without complications; E78.5 Hyperlipidemia, unspecified; Z79.4 Long term (current) use of insulin; Z01.812 Encounter for preprocedural laboratory examination
CPT/HCPCS: 93458; 92978; C9600 ×2

== ENCOUNTER 2018-10-27 13:59 | Observation (INO) | payer MEDICARE, MEDICAID ==
[~2018-10-27] VITALS: Ht 182.9 cm; Wt 110.0 kg
[~2018-10-27 13:59] MED LIST changes: +FOSINOPRIL SODI20 MG PO; -FOSINOPRIL SODI40 MG PO; +FUROSEMIDE40 MG PO; +JANUVIA100 MG PO
[2018-10-27 14:25] LABS: BASOPHILS 0.5 % (0-2); EOSINOPHILS 9.8 % (0-7); HEMATOCRIT 33.6 % (42.0-54.0); HEMOGLOBIN 11.5 g/dL (13.5-17.5); IMMATURE GRANULOCYTES 0.4 % (0-5); LYMPHOCYTES 32.1 % (15-50); MCH 29.5 pg (26.0-34.0); MCHC 34.2 g/dL (31.0-37.0); MCV 86.2 fL (80.0-100.0); MEAN PLATELET VOLUME 9.4 fL (7.4-10.4); NEUTROPHILS 44.2 % (40-80); PLATELET COUNT 192 10x3/uL (130-400); RDW 14.3 % (11.5-14.5); WBC 7.5 10x3/uL (4.8-10.8)
[2018-10-27 14:39] LABS: ALBUMIN 3.4 g/dL (3.4-5.0); ALKALINE PHOSPHATASE 61 U/L (46-116); ALT (SGPT) 17 U/L (10-68); BILIRUBIN - TOTAL 0.46 mg/dL (0.2-1.3); CALC OSMOLALITY 274 mosm/kg (275-300); CALCIUM 9.1 mg/dL (8.5-10.1); CARBON DIOXIDE 30.8 mmol/L (21.0-32.0); CHLORIDE - SERUM 97 mmol/L (98-107); CREATININE - SERUM 1.3 mg/dL (0.6-1.3); GLUCOSE 146 mg/dL (74-106); POTASSIUM - SERUM 4.5 mmol/L (3.5-5.1); PROTEIN - SERUM 7.5 g/dL (6.4-8.2); SODIUM 133 mmol/L (136-145); UREA NITROGEN 30 mg/dL (7-18); eGFR NON AFRICAN AMERICAN 57 mL/min (90-120)
[2018-10-27 14:42] LABS: APTT 24.6 SECONDS (22.8-39.4); INR 1.08 (0.85-1.17); PROTIME 13.5 SECONDS (11.6-15.0)
[2018-10-27 14:49] LABS: CKMB 1.5 U/L (0.0-3.6); CREATINE KINASE 52 UL (21-232); MAGNESIUM - SERUM 1.9 mg/dL (1.8-2.4)
[2018-10-27 15:01] LABS: TROPONIN-I < 0.017 ng/mL (0.000-0.060)
[2018-10-27 18:12] VITALS: BP 160/71; Ht 182.9 cm; Wt 110.0 kg
[2018-10-27 20:58] VITALS: BP 139/51
[2018-10-28 00:56] VITALS: BP 136/58
[2018-10-28 04:00] VITALS: BP 125/42
[2018-10-28 09:12] VITALS: BP 141/84
[2018-10-28 12:54] VITALS: BP 107/83
== END 2018-10-28 14:55 | disposition home or self-care (01) ==
LOC: D.ER 13:59 → OBSVTIME 16:18 → D.M2 16:18 → D.EDHOLD 16:18 → D.M2 16:34
PROVIDERS: Family Medicine; ADMIT Internal Medicine Cardiovascular Disease; ATTEND Internal Medicine Cardiovascular Disease
DX: I25.110 Atherosclerotic heart disease of native coronary artery with unstable angina pectoris (principal); I10 Essential (primary) hypertension; E11.9 Type 2 diabetes mellitus without complications; I11.0 Hypertensive heart disease with heart failure; I50.9 Heart failure, unspecified; K21.9 Gastro-esophageal reflux disease without esophagitis; E78.5 Hyperlipidemia, unspecified

== ENCOUNTER 2018-10-30 09:49 | Outpatient (CLI) | payer MEDICARE, MEDICAID ==
[~2018-10-30] VITALS: Ht 182.9 cm; Wt 103.6 kg
--- NOTE | ~2018-10-30 | HEMODYNAMI ---
PATIENT:RIGOBERTO ROSARIO MEDICAL RECORD: [id number] : 40 LOCATION:[facility] ADMISSION DATE: 10/30/18 Generatedon:10/30/201814:23 Patient name: RIGOBERTO ROSARIO Patient #: [id number] SSN: : 1940 Date of study: 10/30/2018 Page: Of Hemodynamic Procedure Report Patient Data Patient Demographics Procedure consent was obtained First Name: RIGOBERTO Gender: Male Last Name: MARLENE : 1940 Middle Initial: J Age: 77 year(s) Patient #: [id number] Race: Additional ID: [id number] Contact details [address]: [address] [place] [address] 8 State: [place] City: [place] Zip code: [address] Past Medical History Allergies: No known allergies Admission Admission Data Admission Date: 10/30/2018 Admission Time: 9:49 Procedure Procedure Types Cath Procedure Diagnostic Procedure LHC LHC w/Coronaries PCI Procedure PTCA PTCA Initial Procedure Description Procedure Date Procedure Date: 10/30/2018 Procedure Start Time: 13:58 Procedure End Time: 14:18 Procedure Staff Name Function Krishan Plata MD Performing Physician Ronen Mark RT Monitor Arsenio Craig RN Nurse Paola Wagoner RT Scrub Procedure Data Cath Procedure Fluoroscopy Diagnostic fluoroscopy Total fluoroscopy Time: 3.9 time: 3.9 min min Diagnostic fluoroscopy Total fluoroscopy dose: 806 dose: 806 mGy mGy Contrast Material Contrast Material Type Amount (ml) Isovue 300 99 Entry Location Entry Primary Successful Side Size Upsize Upsize Entry Closure Succes sful Closure Location (Fr) 1 (Fr) 2 (Fr) Remarks Device Remarks Femoral Right 5 Fr 6 Fr artery Short Diagnostic catheters Device Type Used For End Catheter Placement MULTIPACK JL 4.0 5Fr Left Coronary catheter Angiography MULTIPACK 3DRC 5Fr Right Coronary catheter Angiography MULTIPACK Pigtail 5 Fr LV Angiography catheter Procedure Complications No complications Procedure Medications Medication Administration Route Dosage 0.9% NaCl I.V. 100 ml/hr Oxygen etCO2 Nasal cannula 2 l/min Heparin Flush Bag added to field 2 bags (1000units/500ml NS) Lidocaine 2% added to field 20 Versed I.V. 2 mg Fentanyl I.V. 100 mcg Heparin Bolus I.V. 88057 units Plavix P.O. 600 mg Hemodynamics Rest Heart Rate: 62 (bpm) Pressure Samples Time Site Value (mmHg) Purpose Heart Use Rate(bpm) 14:04 LV 150/3,19 EDP 72 14:05 AO 142/49(84) Pullback 61 14:05 LV 149/9,15 Pullback 61 Gradients Valve Time Site 1 Site 2 Mean SEP/DFP Peak To Heart Use (mmHg) (sec/min) Peak Rate (mmHg) (bpm) Aortic 14:05 LV AO 6 18 7 61 149/9,15 142/49(84) Calculations Valve P-P Mean Valve Index Valve Source Name Gradient Area Flow (cm2) Aortic 7 6 7 6 Snapshots Pre Cath Intra NCS Post Cath Vital Signs Time Heart Resp SPO2 etCO2 NIBP (mmHg) Rhythm Pain Sedation Rate (ipm) (%) (mmHg) Status Level (bpm) 13:54:09 57 23 97 0 158/62(124) NSR 0 (11) 10(A) , No pain 13:58:36 54 18 96 32.3 134/65(106) NSR 0 (11) 10(A) , No pain 14:03:33 58 15 95 0 135/59(102) NSR 0 (11) 10(A) , No pain 14:07:53 57 17 93 0 132/59(99) NSR 0 (11) 9(A) , No pain 14:12:58 59 17 93 0 145/64(104) NSR 0 (11) 9(A) , No pain 14:17:20 59 19 95 32.3 138/55(105) NSR 0 (11) 10(A) , No pain Medications Time Medication Route Dose Verified Delivered Reason Note s Effectiveness by by 13:53:07 0.9% NaCl I.V. 100 Arsenio Arsenio Per physician ml/hr Rafa Craig RN RN 13:53:15 Oxygen etCO2 2 Arsenio Arsenio for low 02 sats Nasal l/min Rafa Craig cannula GARIMA RN 13:53:27 Heparin Flush added 2 bags Arsenio Arsenio used for Bag to Rafa Craig procedure (1000units/500ml field RN RN NS) 13:53:35 Lidocaine 2% added 20ml Arsenio Arsenio for local to vial Rafa Craig anesthetic field RN RN 14:00:25 Versed I.V. 2 mg Arsenio Arsenio for sedation Rafa Craig RN RN 14:00:33 Fentanyl I.V. 100 Arsenio Arsenio for sedation mcg Rafa Craig RN RN 14:12:21 Heparin Bolus I.V. 10,000 Arsenio Arsenio for units Rafa Craig anticoagulation RN RN 14:20:17 Plavix P.O. 600 mg Arsenio Arsenio for Rafa Craig antiplatelet RN RN therapy Procedure Log Time Note 13:30:37 Ronen Suit RT(R) sent for patient. Start room use. 13:40:43 Time tracking: Regular hours (M-F 7:00 - 5:00) 13:40:47 Plan of Care:Hemodynamics will remain stable., Cardiac rhythm will remain stable., Comfort level will be maintained., Respiratory function will remain adequate., Patient/ family verbilizes understanding of procedure., Procedure tolerated without complication., Recovers from procedure without complications.. 13:40:52 Patient received from Pre/Post Procedure Room to [facility] 2 Alert and oriented. Tansferred to table in Supine position. 13:40:52 Warm blankets applied, and jennifer hugger turned on for patient comfort. 13:40:53 Correct patient and procedure confirmed by team. 13:40:54 Signed procedure consent form obtained from patient. 13:40:54 ECG and BP/O2 sat monitors applied to patient. 13:40:55 Full Disclosure recording started 13:52:53 Vital chart was started 13:52:54 Baseline sample Acquired. 13:52:57 Rhythm: sinus rhythm 13:53:07 0.9% NaCl 100 ml/hr I.V. was administered by Arsenio Craig RN; Per physician; 13:53:07 H&P Date Dictated: 10/30/2018 Within 30 days and on chart.. 13:53:08 Pre-procedure instructions explained to patient. 13:53:09 Pre-op teaching completed and patient verbalized understanding. 13:53:10 Family in waiting room. 13:53:12 Patient NPO since Midnight. 13:53:15 Oxygen 2 l/min etCO2 Nasal cannula was administered by Arsenio Craig RN; for low 02 sats; 13:53:27 Heparin Flush Bag (1000units/500ml NS) 2 bags added to field was administered by Arsenio Craig RN; used for procedure; 13:53:35 Lidocaine 2% 20ml vial added to field was administered by Arsenio Craig RN; for local anesthetic; 13:53:55 Patient allergic to No known allergies 13:53:59 Is the patient allergic to Iodine/contrast media? No. 13:54:02 Is patient on blood thinner?No 13:54:03 Patient diabetic? No. 13:54:06 ----Pre-sedation anethsthesia assessment.---- 13:54:09 Previous problem with sedation/anesthesia? No ? 13:54:11 Snore? Yes 13:54:13 Sleep apnea? No 13:54:14 Deviated septum? No 13:54:15 Opens mouth fully? Yes 13:54:17 Sticks out tongue? Yes 13:54:23 Dentures? Yes in tight 13:54:24 Airway obstruction? No ? 13:54:28 Pre procedure: right dorsailis pedis pulse 1+ Palpable, but thready & weak; easily obliterated 13:54:33 Patient pain scale 0/10 ?. 13:54:44 IV patent on arrival in left forearm with 0.9% NaCl at [facility]. 13:55:55 Lab results completed and on chart. 13:55:57 Right groin area was prepped with chlora-prep and draped in sterile fashion 13:55:58 Alarms reviewed by R. N. 13:55:59 Sharps counted by scrub and verified by R.N. 13:56:00 Physician arrived 13:56:00 --------ALL STOP TIME OUT------ 13:56:01 Final Timeout: patient, procedure, and site verified with staff and physician. All members of the team are in agreement. 13:56:03 Right groin site verified by team. 13:56:14 Maximum allowable Isovue 300 dose 300ml. Physician notified. (300ml for normal creatinines. For patients with creatinine of 1.7 or higher multiply weight(kg) x 5 divided by creatinine.) 13:56:24 Fire Safety Assessment: A--An alcohol-based skin anteseptic being used preoperatively., C--Open oxygen or nitrous oxide is being used., D--An ESU, laser, or fiber-optic light is being used. 13:56:28 Physical assessment completed. ASA score P 2 - A patient with mild systemic disease as per Krishan Plata MD. 13:56:32 Sedation plan: IV Moderate Sedation Medication:Versed, Fentanyl 13:57:37 Use device set Femoral Dx 13:57:38 ACIST Syringe (50682) opened to sterile field. 13:57:38 Bag Decanter (2002S) opened to sterile field. 13:57:39 Medline Cath Pack ([id number]) opened to sterile field. 13:57:40 DIAGNOSTIC WIRE .035 260cm J wire (527342) opened to sterile field. 13:57:41 ACIST Hand Control (16392) opened to sterile field. 13:57:41 ACIST Manifold (08526) opened to sterile field. 13:57:42 DIAGNOSTIC Multipack 5Fr catheter set (AG4220) opened to sterile field. 13:57:43 Tegaderm 4 x 4 (1626W) opened to sterile field. 13:57:44 SHEATH 5FR Colcord (BGE614) opened to sterile field. 13:58:17 Procedure started. 13:58:24 Zero performed for pressure channel P1 13:58:35 Local anesthetic to right femoral artery with Lidocaine 2% by Krishan Plata MD.INITIAL ACCESS ONLY 13:58:43 A 5 Fr sheath was inserted into the Right Femoral artery 13:59:44 Zero performed for pressure channel P1 14:00:05 A MULTIPACK JL 4.0 5Fr catheter was advanced over the wire and used for Left Coronary Angiography. 14:00:25 Versed 2 mg I.V. was administered by Arsenio Craig RN; for sedation; 14:00:33 Fentanyl 100 mcg I.V. was administered by Arsenio Craig RN; for sedation; 14:01:02 LCA angiography performed. 14:03:05 Catheter exchanged over wire. 14:03:11 A MULTIPACK 3DRC 5Fr catheter was advanced over the wire and used for Right Coronary Angiography. 14:03:15 RCA angiography performed. 14:03:47 Catheter exchanged over wire. 14:03:57 A MULTIPACK Pigtail 5 Fr catheter was advanced over the wire and used for LV Angiography. 14:04:51 LV gram done using WRIGHT 14:04:53 LV angiography performed. 14:04:55 LV hemodynamics recorded. 14:05:04 EF : 35 % 14:06:35 Catheter exchanged over wire. 14:07:49 TUBING High Pressure Extension Tubing (Plata) ([id number]) opened to sterile field. 14:07:49 SHEATH 6FR Colcord (WUP899) opened to sterile field. 14:07:50 BMW 300cm Ariton 2 J wire ([id number]) opened to sterile field. 14:07:50 INFLATOR Merit BasixCompak (SJ1266) opened to sterile field. 14:08:54 GUIDE 6FR AR 1.0 catheter ([id number]) opened to sterile field. 14:09:53 Sheath upsized to a 6 Fr Short. 14:10:01 6 Fr AR 1 guide catheter was inserted over the wire 14:10:05 BMW2 wire advanced. 14:12:21 Heparin Bolus 10,000 units I.V. was administered by Arsenio Craig RN; for anticoagulation; 14:15:05 Inflate balloon Inflation number: 1 A EMERGE OTW 2.5 x 15 balloon ([id number]) was prepped and advanced across the Dist RCA, then inflated to 16 RONALD for 0:35 (min:sec). 14:15:19 Balloon removed over the wire. 14:15:20 Wire removed. 14:15:23 Guide catheter removed. 14:15:53 EXOSEAL 6Fr (EX600) opened to sterile field. 14:16:05 Procedure type changed to Cath procedure, Diagnostic procedure, LHC, LHC w/Coronaries, PCI procedure, PTCA, PTCA Initial 14:16:11 Procedure ended.(Physican Out) 14:16:41 Fluoroscopy time 03.90 minutes. 14:16:46 Fluoroscopy dose: 806 mGy 14:16:46 Flurop Dose total: 806 14:16:51 Contrast amount:Isovue 300 99ml. 14:16:52 Sharps counted by scrub and verified by R.N. 14:16:53 Insertion/operative site no bleeding no hematoma. 14:16:55 Post-op/insertion site Right Femoral artery dressed using a 4 x 4 and Tegaderm. 14:16:58 Post right femoral artery:stable 14:16:59 Post Procedure Pulses reassessed and unchanged 14:17:01 Post procedure: right dorsailis pedis pulse 1+ Palpable, but thready & weak; easily obliterated. 14:17:04 Post procedure rhythm: sinus rhythm 14:17:16 Post procedure instruction explained to patient.Patient verbalizes understanding. 14:17:17 Procedure and supply charges have been captured, reviewed, submitted and are correct. 14:18:06 Procedure Complication : No complications 14:18:09 Vital chart was stopped 14:18:10 See physician's report for complete and final results. 14:18:16 Report given to Pre/Post Procedure Room. 14:18:19 Patient transfered to Pre/Post Procedure Room with Stretcher. 14:18:21 Procedure ended. 14:18:21 Full Disclosure recording stopped 14:18:29 ACC-PCI Only Patient was given prescriptions, or instructed by Krishan Plata MD to start/continue the following medications upon discharge: Plavix 14:18:29 End room use (Document Last) 14:20:17 Plavix 600 mg P.O. was administered by Arsenio Craig RN; for antiplatelet therapy; Intervention Summary Intervention Notes Time ActionType Lesion and Equipment Action# Pressure Duration Attributes Used 14:15:05 Inflate Dist RCA EMERGE OTW 1 16 00:35 balloon 2.5 x 15 balloon ([id number]) Device Usage Item Name Manufacture Quantity Catalog Number Hospital Part Current Min imal Lot# / Charge Number Stock Stock Serial# Code ACIST Acist 1 97419 094226 086537 753208 20 Syringe Medical (32760) Systems Inc Bag Decanter Microtek 1 652675 31060 353067 5 () Medical Inc. Medline Cath Medline 1 [id number] 260329 47981 179550 5 Pack ([id number]) DIAGNOSTIC [place] 1 312539 583592 320351 213249 30 WIRE .035 260cm J wire (146400) ACIST Hand Acist 1 04361 501551 661614 863307 5 Control Medical (77589) Systems Inc ACIST Acist 1 75988 064871 908152 067371 5 Manifold Medical (35884) Systems Inc DIAGNOSTIC Cardinal 1 EX2406 325496 16935 712760 30 Multipack Health 5Fr catheter set (OG8834) Tegaderm 4 x 3M 1 1626W 146808 059013 795799 5 4 (1626W) SHEATH 5FR Terumo 1 EDX209 322385 287962 406557 5 Colcord (IFI327) MULTIPACK JL Cardinal 1 862199 5 4.0 5Fr Health catheter MULTIPACK Cardinal 1 278629 5 3DRC 5Fr Health catheter MULTIPACK Cardinal 1 368008 5 Pigtail 5 Fr Health catheter TUBING High Merit 1 [id number] 947669 49376 523192 10 Pressure Medical Extension Tubing (Plata) (VC4629T) SHEATH 6FR Terumo 1 LIH896 105694 965057 125323 40 Colcord (GSV843) BMW 300cm Coleman 1 [id number] 476140 198217 648306 5 Ariton 2 Vascular J wire ([id number]) INFLATOR Merit 1 DO3709 259173 755575 495908 15 Merit Medical BasixCompak (DS5191) GUIDE 6FR AR Medtronic 1 VF0IX81 321474 28835 369845 1 1.0 catheter (EQ1GR76) EMERGE OTW [place] 1 [id number] 929652 318686 216035 5 [id number] 2.5 x 15 Scientific balloon ([id number]) EXOSEAL 6Fr Cardinal 1 EX600 362276 830959 046585 10 (EX600) Health Signature Audit Woodrow Stage Time Signature Unsigned Intra-Procedure 10/30/2018 Ronen Mark RT(R) 2:23:38 PM Signatures Monitor : Ronen Mark RT Signature : Date : Time : [facility] [address] [place] [address]
[2018-10-30 10:42] VITALS: BP 157/60; Ht 182.9 cm; Wt 103.6 kg
[2018-10-30 11:31] LABS: ANION GAP 11.3 mmol/L (8-16); CALCIUM 8.9 mg/dL (8.5-10.1); CARBON DIOXIDE 28.6 mmol/L (21.0-32.0); CREATININE - SERUM 1.6 mg/dL (0.6-1.3); POTASSIUM - SERUM 3.9 mmol/L (3.5-5.1)
[2018-10-30 11:44] LABS: BASOPHILS 0.6 % (0-2); EOSINOPHILS 9.8 % (0-7); HEMOGLOBIN 11.5 g/dL (13.5-17.5); IMMATURE GRANULOCYTES 0.3 % (0-5); LYMPHOCYTES 35.6 % (15-50); MCH 29.2 pg (26.0-34.0); MCHC 33.8 g/dL (31.0-37.0); MCV 86.3 fL (80.0-100.0); MEAN PLATELET VOLUME 9.6 fL (7.4-10.4); MONOCYTES 11.1 % (2-11); NEUTROPHILS 42.6 % (40-80); PLATELET COUNT 193 10x3/uL (130-400); RBC 3.94 10x6/uL (4.20-6.10); RDW 14.2 % (11.5-14.5); WBC 6.6 10x3/uL (4.8-10.8)
--- NOTE | 2018-10-30 14:55 | NUR ---
PATIENT AWAKE, VSS ON 2L NC. RIGHT GROIN DRESSING IS CDI, NO S/S OF BLEEDING OR HEMATOMA. NO C/O PAIN, NUMBNESS, OR TINGLING. PATIENT STATES THAT HE "WILL NOT TAKE PLAVIX, I REFUSE. IT KILLED MY MOTHER AND I WON'T TAKE IT". SPOKE WITH PATIENT AND HIS DAUGHTER REGARDING BENEFITS OF PLAVIX AND RISKS OF REFUSING TO TAKE IT. CALEB BYRNES, BUILDING SERVICES SUPERVISOR, AT BEDSIDE TO DISCUSS WITH PATIENT THE IMPORTANCE OF PLAVIX AND THE RISKS OF REFUSAL, PATIENT STATES THAT HE "KNOWS, BUT I'M STILL NOT GOING TO TAKE IT."
--- NOTE | 2018-10-30 15:25 | NUR ---
PATIENT RESTING INTERMITTENTLY, VSS ON 2L NC. RIGHT GROIN DRESSING IS CDI, NO S/S OF BLEEDING OR HEMATOMA. NO C/O PAIN, NUMBNESS, OR TINGLING. NO N/V.
--- NOTE | 2018-10-30 15:40 | NUR ---
PATIENT INTERMITTENTLY RESTING, VSS ON 2L NC. RIGHT GROIN DRESSING IS CDI, NO S/S OF BLEEDING OR HEMATOMA. NO C/O PAIN, NUMBNESS, OR TINGLING.
--- NOTE | 2018-10-30 16:10 | NUR ---
PATIENT AWAKE, VSS ON 2L NC. RIGHT GROIN DRESSING IS CDI, NO S/S OF BLEEDING OR HEMATOMA. NO C/O PAIN, NUMBNESS, OR TINGLING. PATIENT EATING HOT CHEETOS, NO N/V. FAMILY PRESENT AT BEDSIDE.
--- NOTE | 2018-10-30 16:40 | NUR ---
PATIENT INTERMITTENTLY RESTING, VSS ON 2L NC. RIGHT GROIN DRESSING IS CDI, NO S/S OF BLEEDING OR HEMATOMA. NO C/O PAIN, NUMBNESS, OR TINGLING. NO N/V.
--- NOTE | 2018-10-30 17:10 | NUR ---
PATIENT RESTING, VSS ON 1L NC. RIGHT GROIN DRESSING IS CDI, NO S/S OF BLEEDING OR HEMATOMA. NO C/O PAIN, NUMBNESS, OR TINGLING.
--- NOTE | 2018-10-30 17:20 | NUR ---
HEAD OF BED ELEVATED TO 30 DEGREES, RIGHT GROIN DRESSING IS CDI, NO S/S OF BLEEDING OR HEMATOMA. VSS ON ROOM AIR. FAMILY PRESENT AT BEDSIDE.
--- NOTE | 2018-10-30 17:50 | NUR ---
EDUCATION REGARDING DISCHARGE INSTRUCTIONS AND MEDICATION COMPLIANCE GIVEN TO PATIENT AND DAUGHTER. PATIENT CONTINUES TO STATE THAT HE "WILL NEVER TAKE PLAVIX". DAUGHTER STATES THAT SHE WILL GET THE PRESCRIPTION FILLED AND TRY TO GET HER FATHER TO TAKE DIRECTED. VSS ON ROOM AIR. HEAD OF BED AT 90 DEGREES, RIGHT GROIN DRESSING IS CDI, NO S/S OF BLEEDING OR HEMATOMA. NO C/O PAIN, NUMBNESS, OR TINGLING. IV REMOVED. PATIENT VOIDED PER URINAL WITHOUT DIFFICULTY.
--- NOTE | 2018-10-30 18:00 | NUR ---
PRESCRIPTION FOR PLAVIX CALLED INTO [facility] IN [place], OR PER REQUEST OF PATIENT DAUGHTER.
--- NOTE | 2018-10-30 18:10 | NUR ---
PATIENT TRANSPORTED VIA WHEELCHAIR TO CAR WITH FAMILY DRIVING, ALL BELONGINGS WITH PATIENT.
== END 2018-10-30 18:10 ==
LOC: D.CATH 09:49
PROVIDERS: ATTEND Internal Medicine Cardiovascular Disease
DX: I25.110 Atherosclerotic heart disease of native coronary artery with unstable angina pectoris (principal)

== ENCOUNTER → 2020-09-29 20:10 | Outpatient (CLI) | payer MEDICARE, MEDICAID ==
[2018-10-30 10:42] VITALS: BMI 31.0
== END | disposition home or self-care (01) ==
LOC: D.LABREF 20:10
PROVIDERS: ATTEND Podiatrist Foot & Ankle Surgery
DX: M86.8X7 Other osteomyelitis, ankle and foot (principal)

== ENCOUNTER 2020-12-17 13:11 | Emergency (ER) | payer MEDICARE, MEDICAID ==
[~2020-12-17] VITALS: Ht 182.9 cm; Wt 123.8 kg
[2020-12-17 13:13] VITALS: BP 170/68; Ht 182.9 cm; Wt 123.8 kg
[2020-12-17 14:10] LABS: BASOPHILS 1.1 % (0-2); EOSINOPHILS 6.6 % (0-7); HEMATOCRIT 35.7 % (42.0-54.0); HEMOGLOBIN 11.7 g/dL (13.5-17.5); LYMPHOCYTES 31.4 % (15-50); MCH 27.2 pg (26.0-34.0); MCHC 32.8 g/dL (31.0-37.0); MCV 82.7 fL (80.0-100.0); MEAN PLATELET VOLUME 6.7 fL (7.4-10.4); MONOCYTES 10.7 % (2-11); NEUTROPHILS 50.2 % (40-80); RBC 4.32 10x6/uL (4.20-6.10); RDW 17.1 % (11.5-14.5); WBC 7.6 10x3/uL (4.8-10.8)
[2020-12-17 14:18] LABS: CALC OSMOLALITY 285 mosm/kg (275-300); CALCIUM 9.6 mg/dL (8.5-10.1); CARBON DIOXIDE 28.8 mmol/L (21.0-32.0); CHLORIDE - SERUM 93 mmol/L (98-107); CREATININE - SERUM 1.8 mg/dL (0.6-1.3); GLUCOSE 114 mg/dL (74-106); POTASSIUM - SERUM 4.3 mmol/L (3.5-5.1); SODIUM 129 mmol/L (136-145); UREA NITROGEN 85 mg/dL (7-18); eGFR NON AFRICAN AMERICAN 39 mL/min (90-120)
[2020-12-17 14:20] LABS: APTT 24.6 SECONDS (22.8-39.4); INR 1.13 (0.85-1.17); PROTIME 13.4 SECONDS (11.6-15.0)
[2020-12-17 14:23] LABS: PLATELET COUNT 389 10x3/uL (130-400)
[2020-12-17 14:35] LABS: ALBUMIN 3.7 g/dL (3.4-5.0); ALKALINE PHOSPHATASE 88 U/L (30-120); ALT (SGPT) 12 U/L (10-68); BILIRUBIN - TOTAL 0.33 mg/dL (0.2-1.3); CKMB 1.3 U/L (0.0-3.6); CREATINE KINASE 49 UL (21-232); MAGNESIUM - SERUM 2.3 mg/dL (1.8-2.4); PROTEIN - SERUM 9.4 g/dL (6.4-8.2); TROPONIN-I < 0.017 ng/mL (0.000-0.060)
== END 2020-12-17 18:14 | disposition left against medical advice (07) ==
LOC: D.ER 13:11
PROVIDERS: Family Medicine
DX: R07.9 Chest pain, unspecified (principal)

== ENCOUNTER → 2021-01-05 15:28 | Outpatient (CLI) | payer MEDICARE, MEDICAID ==
[2020-12-17 13:13] VITALS: BMI 31.0
[~2021-01-05 15:28] MED LIST changes: +ASPIRIN PO; +CLARITIN 10 MG10 MG PO; +CLINDAMYCIN HC300 MG PO; +GABAPENTIN100 MG PO; +K-TAB10 MEQ PO; +SINGULAIR10 MG PO
== END | disposition home or self-care (01) ==
LOC: D.LABREF 15:28
PROVIDERS: ATTEND Podiatrist Foot & Ankle Surgery
DX: L03.115 Cellulitis of right lower limb (principal)

== ENCOUNTER 2021-01-08 06:12 | Day surgery (SDC) | payer MEDICARE, MEDICAID ==
[2021-01-06 10:51] LABS: BASOPHILS 0.5 % (0-2); EOSINOPHILS 6.1 % (0-7); HEMATOCRIT 32.7 % (42.0-54.0); HEMOGLOBIN 10.7 g/dL (13.5-17.5); LYMPHOCYTES 25.7 % (15-50); MCH 27.6 pg (26.0-34.0); MCHC 32.7 g/dL (31.0-37.0); MCV 84.3 fL (80.0-100.0); MEAN PLATELET VOLUME 7.1 fL (7.4-10.4); MONOCYTES 10.9 % (2-11); NEUTROPHILS 56.8 % (40-80); RBC 3.88 10x6/uL (4.20-6.10); RDW 17.2 % (11.5-14.5); WBC 9.7 10x3/uL (4.8-10.8)
[2021-01-06 11:00] LABS: PLATELET COUNT 231 10x3/uL (130-400)
[2021-01-06 11:07] LABS: ANION GAP 10.4 mmol/L (8-16); CALCIUM 8.8 mg/dL (8.5-10.1); CARBON DIOXIDE 32.5 mmol/L (21.0-32.0); CREATININE - SERUM 2.6 mg/dL (0.6-1.3); POTASSIUM - SERUM 4.9 mmol/L (3.5-5.1)
[~2021-01-08] VITALS: Ht 182.9 cm; Wt 104.3 kg
[2021-01-08 07:42] VITALS: BP 148/82; Ht 182.9 cm; Wt 104.3 kg
[2021-01-08] MEDS ORDERED: HYDROCODON-ACE1 EAC7 PO (09:39)
--- NOTE | 2021-01-08 09:52 | NUR ---
1 GRAM OF VANCOMYCIN INFUSING IN 20CC OF NORMAL SALINE ON ADMIT
--- NOTE | 2021-01-08 09:53 | NUR ---
OPA IN AIRWAY ON ADMIT
--- NOTE | 2021-01-08 11:25 | NUR ---
DISCHARGED VIA W/C, ACCOMPANIED BY THIS NURSE, TO POV WITH FAMILY DRIVING. ALL BELONGINGS WITH FAMILY.
== END 2021-01-08 11:25 | disposition home or self-care (01) ==
LOC: D.OPS 06:12
PROVIDERS: Anesthesiology; ATTEND Podiatrist Foot & Ankle Surgery
DX: M86.171 Other acute osteomyelitis, right ankle and foot (principal); I10 Essential (primary) hypertension; R06.02 Shortness of breath; F17.200 Nicotine dependence, unspecified, uncomplicated; E11.9 Type 2 diabetes mellitus without complications; N28.9 Disorder of kidney and ureter, unspecified